=== PATIENT | male | born 1950 | race Caucasian/White ===

== ENCOUNTER → 2019-06-05 | Outpatient (CLI) | payer SELFPAY ==
[~2019-06-05] MED LIST: AMOCLA875 PO; CYCL10 PO; MULVITA; NAPR500 PO; ROXICODONE5 MG PO; RXCYCL10 PO; RXTRAM50 PO; TRAM50 PO
== END ==
LOC: LAB 11:00 → LAB SHORT 11:00
DX: M86.172 Other acute osteomyelitis, left ankle and foot (principal); E11.42 Type 2 diabetes mellitus with diabetic polyneuropathy
CPT/HCPCS: 87070; 87075; 87076; 87077; 87185; 87186; 87205

== ENCOUNTER 2019-06-07 16:11 | Observation (INO) | payer SELFPAY ==
[~2019-06-07] VITALS: Ht 172.7 cm; Wt 69.0 kg
[~2019-06-07 16:11] MED LIST changes: -AMOCLA875 PO; -ROXICODONE5 MG PO
[2019-06-07 18:28] LABS: BASOPHILS ABSOLUTE AUTO 0.08 K/mm3 (0.00-0.23); BASOPHILS PERCENT AUTO 1 % (0-2); EOSINOPHILS ABSOLUTE AUTO 0.41 K/mm3 (0.00-0.68); EOSINOPHILS PERCENT AUTO 4 % (0-6); Hematocrit 36.4 % (37.0-53.0); Hemoglobin 11.9 g/dL (13.5-17.5); IMMATURE GRAN ABSOLUTE AUTO 0.06 K/mm3 (0.00-0.10); IMMATURE GRAN PERCENT AUTO 1 % (0-1); LYMPHOCYTES ABSOLUTE AUTO 1.83 K/mm3 (0.84-5.20); LYMPHOCYTES PERCENT AUTO 16 % (21-46); MONOCYTES ABSOLUTE AUTO 0.81 K/mm3 (0.16-1.47); MONOCYTES PERCENT AUTO 7 % (4-13); Mean Corpuscular HGB 29.2 pg (26.0-34.0); Mean Corpuscular HGB Conc 32.7 g/dL (31.5-36.5); Mean Corpuscular Volume 89 fL (80-100); Mean Platelet Volume 9.9 fL (9.1-12.4); NEUTROPHILS ABSOLUTE AUTO 8.55 K/mm3 (1.96-9.15); NEUTROPHILS PERCENT AUTO 73 % (41-73); Platelet Count 359 K/mm3 (150-400); RDW Coefficient Variation 12.7 % (11.7-14.2); RDW Standard Deviation 41.6 fL (35.1-46.3); Red Blood Cell Count 4.08 M/mm3 (4.30-5.90); White Blood Cell Count 11.74 K/mm3 (4.00-11.30)
[2019-06-07 18:51] LABS: Alanine Aminotransfer (ALT/SGP 15 U/L (12-78); Albumin, Blood 3.2 g/dL (3.4-5.0); Albumin/Globulin Ratio 0.7 (0.8-1.8); Alk Phos 90 U/L (50-136); Anion Gap 6 mmol/L (6-16); Aspartate Aminotrans (AST/SGOT 10 U/L (12-37); Bilirubin, Total 0.2 mg/dL (0.1-1.0); Blood Urea Nitrogen 24 mg/dL (8-24); CO2, Blood 25 mmol/L (21-32); Calcium, Blood 9.1 mg/dL (8.5-10.1); Chloride, Blood 105 mmol/L (98-108); Creatinine, Blood 1.09 mg/dL (0.60-1.20); Globulin, Blood 4.9 g/dL (2.2-4.0); Glomerular Filtration Rate >60 (60-); Glucose, Blood 112 mg/dL (70-99); Potassium, Blood 4.8 mmol/L (3.5-5.5); Sodium, Blood 136 mmol/L (136-145); Total Protein, Blood 8.1 g/dL (6.4-8.2)
--- NOTE | 2019-06-07 22:23 | NUR ---
ARRIVAL PT ARRIVED TO UNIT VIA GURNEY FROM ER AT APPROX 2120. PT TRANSFERED SELF TO BED WITH STBY ASSIST. PATIENT ALERT AND ORIENTED. SITTING UP IN BED. PT HAS POSITIVE AFFECT. TOLERATED PO, ATE A SNACK ON ARRIVAL TO UNIT. WILL BE NPO AT MIDNIGHT. DENIES PAIN, DENIES ANY OTHER NEEDS AT THIS TIME. CALL LIGHT IN REACH, PATIENT ORIENTED TO UNIT.
[2019-06-08 03:42] LABS: Hematocrit 34.1 % (37.0-53.0); Mean Corpuscular HGB 28.9 pg (26.0-34.0); Mean Corpuscular HGB Conc 32.3 g/dL (31.5-36.5); Mean Corpuscular Volume 90 fL (80-100); Mean Platelet Volume 9.9 fL (9.1-12.4); Platelet Count 338 K/mm3 (150-400); RDW Coefficient Variation 12.7 % (11.7-14.2); RDW Standard Deviation 41.5 fL (35.1-46.3); Red Blood Cell Count 3.81 M/mm3 (4.30-5.90); White Blood Cell Count 9.88 K/mm3 (4.00-11.30)
--- NOTE | 2019-06-08 03:59 | NUR ---
SHIFT SUMMARY PT [id number], VSS. PT HAS BEEN RESTING IN BED DURING SHIFT. 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 WOUND REDRESSED ON ARRIVAL TO UNIT. PT DENIES PAIN, DENIES OTHER NEEDS AT THIS TIME
[2019-06-08 04:05] LABS: Alanine Aminotransfer (ALT/SGP 15 U/L (12-78); Albumin, Blood 2.8 g/dL (3.4-5.0); Albumin/Globulin Ratio 0.6 (0.8-1.8); Alk Phos 87 U/L (50-136); Anion Gap 9 mmol/L (6-16); Aspartate Aminotrans (AST/SGOT 12 U/L (12-37); Bilirubin, Total 0.3 mg/dL (0.1-1.0); Blood Urea Nitrogen 24 mg/dL (8-24); Bun/Creatinine Ratio 20.5 (12.0-20.0); CO2, Blood 25 mmol/L (21-32); Calcium, Blood 8.9 mg/dL (8.5-10.1); Chloride, Blood 105 mmol/L (98-108); Creatinine, Blood 1.17 mg/dL (0.60-1.20); Globulin, Blood 4.7 g/dL (2.2-4.0); Glomerular Filtration Rate >60 (60-); Glucose, Blood 138 mg/dL (70-99); Potassium, Blood 4.7 mmol/L (3.5-5.5); Sodium, Blood 139 mmol/L (136-145); Total Protein, Blood 7.5 g/dL (6.4-8.2)
--- NOTE | 2019-06-08 04:42 | NUR ---
PT PLACED ON 1L OF OXYGEN WHILE ASLEEP. SATS 88 ON RA. 96% ON 1L. PATIENT CURRENTLT RESTING. DENIES ANY ABNORMAL FEELING.
--- NOTE | 2019-06-08 12:32 | NUR ---
Patient is lying in bed and alert. Patient openly shares abput his concerns about his surgery and recovery, especially about how it will effect his finances from work that will be missed. Patient talks about his Rastafari vince with passion. He also tells of the loneliness he feels at times. I listen empathically, normalize patient's experience, reinforce helpful attitudes and practices, explore gnosticism beliefs and provide presugery prayer. Patient responds well and shows signs of reduced stress. I will continue to remainavailable to patient and family.
--- NOTE | 2019-06-08 16:18 | NUR ---
PT TO HAVE PROCEDURE. PT BEEN NPO. PT VOIDED. PT CBG CHECKED.
--- NOTE | 2019-06-08 16:30 | NUR ---
INTO SDS VIA [employer]. PT DENIES PAIN. SHARMIN WRAP IN PLACE TO LEFT LOWER EXTREMITY/ANKLE.PT DENIES PAIN OR NAUSEA. History, Chart, Medications and Allergies reviewed before start of procedure.Lungs clear T/O to Auscultation. Patient confirms NPO status and agrees with scheduled surgery.CBG-110 @ [id number].
--- NOTE | 2019-06-08 17:49 | NUR ---
SHIFT SUMMARY PT BEEN NPO TODAY. PT BEEN ASSISTED WITH ADL'S PRN. PT OUT OF ROOM FOR PROCEDURE. PT PLACED BELONGINGS IN BEDSIDE END TABLE. PT VOIDING. PT WAS ON IVF.
--- NOTE | 2019-06-08 18:45 | NUR ---
PT RECENTLY BACK FROM PROCEDURE. PT A/O. PT REPORTS HUNGRY, GIVEN SNACK. PT HAS DRESSING TO L FOOT C/D/I. PT WIGGLES TOES. VSS.
--- NOTE | 2019-06-08 20:20 | NUR ---
CALLED CONSULT FOR DR GRAHAM. CONSULT LINE MESSAGE STATED WILL NOT BE DOING INPATIENT VISITS 06/11/19 (REGULAR DAY). NOTIFIED HOSPITALIST OF SITUATION AND LACK OF ABX ORDERS. HOSPITALIST INSTRUCTED TO WAIT UNTIL MICROBIOLOGY REPORT BACK FOR ORDERS, LABS INDICATE NO RISK OF SEPSIS AT THIS TIME.
--- NOTE | 2019-06-09 05:56 | NUR ---
SHIFT SUMMARY: VSS, NO ACUTE CHANGES. PT TOLERATING PO INTAKE, NO N/V. PT VOIDING USING URINAL. PT ON BEDREST WITH OPERATIVE FOOT ELEVATED ON TWO PILLOW. PT REPORTS NO PAIN, NEUROPATHY BASELING. GAUZE AND SHARMIN WRAP DRESSING REMAIN C/D/I, TOES WARM AND WITH GOOD CAP REFILL.AT 0500 PT REPORTS NERVE TWITCHING IN OPERATIVE LEG. PROVIDED PT WITH ROM EXERCISES IN OPERATIVE LEG, K-PAD. ON NURSE ROUNDING T/O SHIFT FOLLOWING APPROX 2200 PT APPEARS TO BE SLEEPING.
--- NOTE | 2019-06-09 08:57 | NUR ---
DR GAMINO HERE TO SEE PT.
--- NOTE | 2019-06-09 11:53 | NUR ---
THERAPY IN TO SEE PT.
--- NOTE | 2019-06-09 11:54 | NUR ---
Provided companionship and prayer. Patient responds well and voices appreciation for the visit.
[2019-06-09] MEDS ORDERED: ROXICODONE5 MG PO ×2 (16:18)
[2019-06-09] MEDS ORDERED: AMOCLA875 PO ×2 (16:19)
--- NOTE | 2019-06-09 16:37 | NUR ---
DISCHARGE: PT REPORTS UNDERSTANDING OF DISCHARGE INSTRUCTIONS. PT VOIDING, PASSING GAS. PT SENT WITH BELONGINGS AND PAPERWORK INCLUDING SCRIPTS. POST-OP BOOT PLACED ON PT BEFORE PT LEFT PER DR DING. PT TO CONTACT DR DING OFFICE TOMMORROW FOR F/U APPT ON SATURDAY OR SATURDAY. PT FRIEND HERE TO GIVE PT RIDE HOME. PT REFUSING H.H. RECCOMMENDED BY THERAPY (DR'S AWARE). DR DING REPORTS WILL CHANGE DRESSING AT F/U APPT. MARKETING STRATEGY MANAGER BEEN TO SEE PT, PT REPORTS HAVING BOOKLET THAT MARKETING STRATEGY MANAGER GAVE HIM. SCRIPT FOR FWW SENT WITH PT. IV OUT WNL, NO OTHER IV'S IN PLACE.
== END 2019-06-09 16:59 | disposition home or self-care (01) ==
LOC: ER 16:11 → SURS 16:12 → ER 18:52 → SURS 18:52
PROVIDERS: Emergency Medicine; ADMIT Internal Medicine
DX: E11.621 Type 2 diabetes mellitus with foot ulcer (principal); L97.426 Non-pressure chronic ulcer of left heel and midfoot with bone involvement without evidence of necrosis; E11.69 Type 2 diabetes mellitus with other specified complication; M86.9 Osteomyelitis, unspecified; I10 Essential (primary) hypertension; E11.65 Type 2 diabetes mellitus with hyperglycemia; E11.42 Type 2 diabetes mellitus with diabetic polyneuropathy; E11.59 Type 2 diabetes mellitus with other circulatory complications; Z79.4 Long term (current) use of insulin
CPT/HCPCS: 36415; 73630; 80053; 82947; 85025; 85027; 85651; 93005; 93010; 97162; 97530; 99284-25; J0690; J1100; J1650; J2250; J2405; J2704; J7030; J7120

== ENCOUNTER 2020-01-25 05:54 | Day surgery (SDC) | payer MEDICARE ==
[~2020-01-25] VITALS: Ht 172.7 cm; Wt 70.6 kg
[~2020-01-25 05:54] MED LIST changes: +AMOCLA875 PO; +ATOR20 PO; +BASAGLAR K100 UNIT/3 SC; +LISI20 PO; +METF500 PO; +ROXICODONE5 MG PO
--- NOTE | 2020-01-25 06:33 | NUR ---
PT ADMITTED TO [facility]. AGREES WITH PLANNED SURGERY. LUNG SOUNDS CLEAR.
--- NOTE | 2020-01-25 13:33 | NUR ---
LE 1334 WHEN I CALLED [facility], PATIENTS RIDE HOME SHE STATED, "I TALKED TO HIM ABOUT NOT BEING AVAILABLE TO GIVE HIM A RIDE HOME". PATIENT SAID HE NEEDED HI S PHONE TO CALL ANOTHER FIREND. TOOK PATIENT OUT TO HIS TRUCK AFTER STABLE ON HIS FEET AND USED THE RESTROOM TO GET HIS PHONE VIA WHEELCHAIR AFTER HE GOT DRESSED AND SLING PLACED ON LEFT ARM. PT RETRIEVED HIS PHONE AND WAS ABLE TO GET A HOLD OF A RIDE HOME. Patient up to Ambulate independently. Gait steady. Discharge instructions reviewed with patient. Patient verbalizes understanding. Copy given to patient to take home. Patient States Post-Procedure ride home has been arranged. Discharged via wheelchair to private car for ride home. ALL BELONINGS RETURNED TO PATIENT.
[2020-02-17 14:07] LABS: Performing Lab SYMBIODX; Test Name BRAF PCR
[2020-02-26 10:15] LABS: Result SEE PATHOTH RESULTS
== END 2020-01-25 22:37 | disposition home or self-care (01) ==
LOC: ORSCMMR 05:54 → ORD 07:30 → ORSCMMR 22:37
PROVIDERS: Internal Medicine Hematology & Oncology; Surgery
PROC: 0JB70ZZ Excision of Back Subcutaneous Tissue and Fascia, Open Approach (ICD-10-PCS; principal; 2020-01-25 07:30)
PROC: 0JB70ZX Excision of Back Subcutaneous Tissue and Fascia, Open Approach, Diagnostic (ICD-10-PCS; principal; 2020-01-25 07:30)
DX: C44.509 Unspecified malignant neoplasm of skin of other part of trunk (principal); I10 Essential (primary) hypertension; E11.9 Type 2 diabetes mellitus without complications; Z79.899 Other long term (current) drug therapy; Z79.84 Long term (current) use of oral hypoglycemic drugs
CPT/HCPCS: 81210; 82947; 88305; 88331; 88341; 88342; 88381; A9270-GY; J0690; J1100; J2250; J2405; J2704; J2765; J3010; J7120

== ENCOUNTER 2020-09-12 10:50 | Emergency (ER) | payer OTHER ==
[~2020-09-12] VITALS: Ht 172.7 cm; Wt 72.6 kg
[2020-09-12 11:31] LABS: BASOPHILS ABSOLUTE AUTO 0.08 K/mm3 (0.00-0.23); BASOPHILS PERCENT AUTO 1 % (0-2); EOSINOPHILS ABSOLUTE AUTO 0.43 K/mm3 (0.00-0.68); EOSINOPHILS PERCENT AUTO 4 % (0-6); Hematocrit 41.8 % (37.0-53.0); IMMATURE GRAN ABSOLUTE AUTO 0.03 K/mm3 (0.00-0.10); IMMATURE GRAN PERCENT AUTO 0 % (0-1); LYMPHOCYTES ABSOLUTE AUTO 1.82 K/mm3 (0.84-5.20); LYMPHOCYTES PERCENT AUTO 16 % (21-46); MONOCYTES ABSOLUTE AUTO 0.68 K/mm3 (0.16-1.47); MONOCYTES PERCENT AUTO 6 % (4-13); Mean Corpuscular HGB 30.3 pg (26.0-34.0); Mean Corpuscular HGB Conc 33.5 g/dL (31.5-36.5); Mean Corpuscular Volume 91 fL (80-100); NEUTROPHILS ABSOLUTE AUTO 8.48 K/mm3 (1.96-9.15); NEUTROPHILS PERCENT AUTO 74 % (41-73); Platelet Count 364 K/mm3 (150-400); RDW Coefficient Variation 12.9 % (11.7-14.2); Red Blood Cell Count 4.62 M/mm3 (4.30-5.90); White Blood Cell Count 11.52 K/mm3 (4.00-11.30)
[2020-09-12 11:54] LABS: Alanine Aminotransfer (ALT/SGP 24 U/L (12-78); Alk Phos 93 U/L (50-136); Anion Gap 4 mmol/L (6-16); Aspartate Aminotrans (AST/SGOT 17 U/L (12-37); Bilirubin, Total 0.5 mg/dL (0.1-1.0); Blood Urea Nitrogen 16 mg/dL (8-24); Bun/Creatinine Ratio 21.5 (12.0-20.0); CO2, Blood 29 mmol/L (21-32); Calcium, Blood 9.3 mg/dL (8.5-10.1); Chloride, Blood 106 mmol/L (98-108); Creatinine, Blood 0.74 mg/dL (0.60-1.20); Globulin, Blood 4.2 g/dL (2.2-4.0); Glomerular Filtration Rate >60 (60-); Glucose, Blood 148 mg/dL (70-99); Potassium, Blood 4.8 mmol/L (3.5-5.5); Sodium, Blood 139 mmol/L (136-145); Total Protein, Blood 8.2 g/dL (6.4-8.2); Troponin I <0.015 ng/mL (0.000-0.040)
[2020-09-12] MEDS ORDERED: GABA100 PO (13:33)
== END 2020-09-12 15:12 | disposition home or self-care (01) ==
LOC: ER 10:50
PROVIDERS: Physician Assistant
DX: I10 Essential (primary) hypertension (principal); E11.9 Type 2 diabetes mellitus without complications; Z79.4 Long term (current) use of insulin; Z79.899 Other long term (current) drug therapy
CPT/HCPCS: 36415; 71046; 80053; 84484; 85025; 93005; 93010; 99284-25